=== PATIENT | female | born 2000 | race Caucasian/White ===

== ENCOUNTER → 2023-09-25 08:07 | Outpatient (REF) | payer OTHER, SELFPAY ==
[2023-09-25 10:24] LABS: FSH 5.5 mIU/ml; Luteinizing Hormone 4.13 mIU/ml
[2023-09-25 10:38] LABS: TSH Reflex To Free T4 1.66 uIU/ml (0.47-4.68)
[2023-09-25 13:23] LABS: Glycohemoglobin (HgbA1c) 5.3 % (4.0-5.6)
[2023-09-27 16:37] LABS: Insulin, Random 6 uIU/mL
[2023-09-27 21:27] LABS: DHEA Sulfate 179 ug/dL (148-407)
== END ==
LOC: REG 08:07
PROVIDERS: ATTENDING PHYSICIAN Obstetrics & Gynecology Gynecology; FAMILY PHYSICIAN Internal Medicine
DX: N92.6 Irregular menstruation, unspecified (principal)
CPT/HCPCS: 36415; 82627; 83001; 83002; 83036; 83525; 84270; 84402; 84403; 84443

== ENCOUNTER → 2023-12-28 10:21 | Outpatient (REF) | payer OTHER, SELFPAY ==
[2023-12-30 18:50] LABS: Hepatitis B Surface Antibody Positive
== END ==
LOC: REG 10:21
PROVIDERS: ATTENDING PHYSICIAN Internal Medicine
DX: Z01.84 Encounter for antibody response examination (principal)
CPT/HCPCS: 36415; 86706